=== PATIENT | female | born 1965 | race Hispanic/Latino ===

== ENCOUNTER 2021-08-04 17:04 | Emergency (ER) | payer OTHER, SELFPAY ==
[2021-08-04] MEDS ORDERED: MORPHINE 4 MG/ML SYR ONE (18:59)
[2021-08-04] MEDS ORDERED: ONDANSETRON 4 MG/2 ML VIAL ONE (18:59)
[2021-08-04] MEDS ORDERED: NA CHLORIDE 0.9% 1,000 ML ONE (18:59)
[2021-08-04 19:34] LABS: Absolute Lymphocytes (CBC) 0.8 K/uL (0.7-4.9); Hematocrit 42.8 % (36.0-45.0); Lymphocytes % 16.5 % (15.3-44.8); MPV 11.1 fL (7.6-11.3); RBC Red Blood Cell Count 4.57 M/uL (3.86-4.86)
[2021-08-04 19:48] LABS: Albumin 3.7 g/dL (3.4-5.0); Bilirubin Total 0.4 mg/dL (0.2-1.0); Potassium 3.7 mmol/L (3.5-5.1); Protein, Total 7.9 g/dL (6.4-8.2)
--- NOTE | 2021-08-04 19:57 | RAD REPORT ---
EXAM DESCRIPTION: CT - Stone Protocol - 08/04/2021 7:37 pm CLINICAL HISTORY: Abdominal pain./FLANK PAIN COMPARISON: 2016 TECHNIQUE: Computed axial tomography of the abdomen pelvis was obtained without oral or IV contrast. Lack of IV and oral contrast limits evaluation of solid organs, bowel, and vessels. Coronal reformat angeles images were obtained and reviewed. All CT scans are performed using dose optimization technique as appropriate and may include automated exposure control or mA/KV adjustment according to patient size. FINDINGS: 5 millimeter calculus proximal left ureter with mild left hydronephrosis. 3 millimeter calculus right kidney. No right hydronephrosis. The liver, spleen, pancreas and adrenals appear grossly normal There is no evidence of diverticulitis. The appendix appears normal IMPRESSION: 5 millimeter calculus proximal left ureter with mild left hydronephrosis
[2021-08-04 21:13] LABS: Urine Blood 3+ (Negative); Urine Glucose Negative (Negative); Urine Protein Negative (Negative)
[2021-08-04] MEDS ORDERED: TAMSULOSIN 0.4 MG SR CAP ONE (21:35)
--- NOTE | 2021-08-04 21:36 | EDPHYS ---
Physician Documentation [facility] Name: Yaneth Joyner Age: 56 yrs Sex: Female : 1965 Arrival Date: 08/04/2021 Time: 17:05 Bed 25 Private MD: ED Physician Evens Jefferson HPI: 08/04 17:56 This 56 yrs old Female presents to ER via Wheelchair with complaints of jmm Abdominal Pain, Vomiting. 17:56 The patient presents with abdominal pain. Onset: The symptoms/episode began/occurred jmm acutely, just prior to arrival, today. The symptoms do not radiate. Associated signs and symptoms: Pertinent positives: vomiting. The symptoms are described as achy. Modifying factors: The symptoms are alleviated by nothing, the symptoms are aggravated by nothing. Is a 56-year-old female with history of anemia the presents emerged part with complaints of left flank pain beginning just prior to arrival. Patient states the pain radiates into her left lower quadrant of her abdomen. Patient has had similar episodes in the past with previous kidney stones. Denies fever or chills.. Historical: - Allergies: 17:29 No Known Allergies; jb4 - Home Meds: 17:29 Iron CR Oral [Active]; jb4 - PMHx: 17:29 Anemia; jb4 - PSHx: 17:29 None; hernia repair; jb4 - Immunization history:: Adult Immunizations up to date. - Social history:: Smoking status: Patient denies any tobacco usage or history of. ROS: 17:56 Constitutional: Negative for fever, chills, and weight loss, Cardiovascular: Negative jm for chest pain, palpitations, and edema, Respiratory: Negative for shortness of breath, cough, wheezing, and pleuritic chest pain. 17:56 Abdomen/GI: Positive for abdominal pain, nausea and vomiting. 17:56 All other systems are negative. Exam: 17:56 Constitutional: This is a well developed, well nourished patient who is awake, alert, jmm and in no acute distress. Head/Face: atraumatic. Eyes: EOMI, no conjunctival erythema appreciated ENT: Moist Mucus Membranes Neck: Trachea midline, Supple Chest/axilla: Normal chest wall appearance and motion. Cardiovascular: Regular rate and rhythm. No edema appreciated Respiratory: Normal respirations, no respiratory distress appreciated 17:56 Skin: General appearance color normal MS/ Extremity: Moves all extremities, no obvious deformities appreciated, no edema noted to the lower extremities Neuro: Awake and alert 17:56 Abdomen/GI: Inspection: abdomen appears normal, Bowel sounds: normal, Palpation: soft, moderate abdominal tenderness, in the left lower quadrant. 17:56 Back: CVA tenderness, that is moderate, is noted bilaterally. Vital Signs: 17:28 BP 156 / 92; Pulse 55; Resp 20; Temp 97.8(O); Pulse Ox 100% ; Weight 113.85 kg (R); jb4 Height 5 ft. 3 in. (160.02 cm) (R); Pain 10/10; 19:21 BP 160 / 89; Pulse 56; Resp 19; Pulse Ox 100% on R/A; jb4 17:28 Body Mass Index 44.46 (113.85 kg, 160.02 cm) jb4 MDM: 17:57 Patient medically screened. [facility] 21:34 Data reviewed: vital signs, nurses notes. Counseling: I had a detailed discussion with [facility] the patient and/or guardian regarding: the historical points, exam findings, and any diagnostic results supporting the discharge/admit diagnosis, radiology results, the need for outpatient follow up, to return to the emergency department if symptoms worsen or persist or if there are any questions or concerns that arise at home. 08/04 17:56 Order name: CBC with Diff; Complete Time: 19:36 [facility] 08/04 17:56 Order name: CMP; Complete Time: 19:52 [facility] 08/04 17:56 Order name: Lipase; Complete Time: 19:52 [facility] 08/04 19:12 Order name: CT Stone Protocol; Complete Time: 20:00 [facility] 08/04 21:13 Order name: Urine Dipstick-Ancillary; Complete Time: 21:14 [facility] 08/04 21:15 Order name: Urine Dipstick-Ancillary [facility] 08/04 17:56 Order name: IV Saline Lock; Complete Time: 19:18 [facility] 08/04 17:56 Order name: Labs collected and sent; Complete Time: 19:18 [facility] 08/04 17:56 Order name: Urine Dipstick-Ancillary (obtain specimen); Complete Time: 21:14 [facility] Administered Medications: 19:18 Drug: NS 0.9% 1000 ml Route: IV; Rate: 1 bolus; Site: left forearm; jb4 20:37 Follow up: Response: No adverse reaction; IV Status: Completed infusion; IV Intake: jb4 1000ml 19:18 Drug: Zofran (Ondansetron) 4 mg Route: IVP; Site: left forearm; jb4 19:18 Drug: morphine 4 mg Route: IVP; Site: left forearm; jb4 20:37 Follow up: Response: No adverse reaction; Marked relief of symptoms jb4 21:37 Drug: Flomax (tamsulosin) 0.4 mg Route: PO; jb4 Disposition: 23:38 Co-signature as Attending Physician, Evens Jefferson MD. rn Disposition Summary: 08/04/21 21:35 Discharge Ordered Location: Home [facility] Condition: Stable [facility] Diagnosis - Calculus of kidney with calculus of ureter [facility] Followup: [facility] - With: Stan Kulkarni MD - When: 2 - 3 days - Reason: Recheck today's complaints, Continuance of care, Re-evaluation by your physician Discharge Instructions: - Discharge Summary Sheet [facility] - Kidney Stones [facility] Forms: - Medication Reconciliation Form [facility] - Thank You Letter [facility] - Antibiotic Education [facility] - Prescription Opioid Use [facility] Prescriptions: - Flomax 0.4 mg Oral capsule - take 1 capsule by ORAL route once daily 1/2 hour following the same meal each [facility] day; 10 capsule; Refills: 0, Product Selection Permitted - Ultracet 37.5-325 mg Oral Tablet - take 1 tablet by ORAL route every 6 hours - for up to 5 days; do not exceed 8 jmm tablets per day.; 12 tablet; Refills: 0, Product Selection Permitted - Ibuprofen 600 mg Oral Tablet - take 1 tablet by ORAL route 2 times per day As needed take with food; 12 jmm tablet; Refills: 0, Product Selection Permitted - ondansetron 4 mg Oral tablet,disintegrating - take 1 tablet by ORAL route every 4-6 hours; 20 tablet; Refills: 0, Product [facility] Selection Permitted Signatures: Dispatcher [employer] Zacarias Yuen PA PA [facility] Evens Jefferson MD MD rn Bryson, James, RN RN jb4
--- NOTE | 2021-08-04 21:36 | ER ---
Nurse's Notes [facility] Name: Yaneth Joyner Age: 56 yrs Sex: Female : 1965 Arrival Date: 08/04/2021 Time: 17:05 Bed 25 Private MD: Diagnosis: Calculus of kidney with calculus of ureter Presentation: 08/04 17:28 Chief complaint: Patient's son or daughter states: She started getting left lower jb4 abdominal pain that radiates to the right upper abdominal pain and has been vomiting and cannot keep anything down. Coronavirus screen: At this time, the client does not indicate any symptoms associated with coronavirus-19. Ebola Screen: No symptoms or risks identified at this time. Initial Sepsis Screen: Does the patient meet any 2 criteria? No. Patient's initial sepsis screen is negative. Does the patient have a suspected source of infection? Yes: Acute abdominal pain. Risk Assessment: Do you want to hurt yourself or someone else? Patient reports no desire to harm self or others. Onset of symptoms was August 04, 2021. Transition of care: patient was not received from another setting of care. 17:28 Method Of Arrival: Wheelchair jb4 17:28 Acuity: MINA 3 jb4 Historical: - Allergies: 17:29 No Known Allergies; jb4 - Home Meds: 17:29 Iron CR Oral [Active]; jb4 - PMHx: 17:29 Anemia; jb4 - PSHx: 17:29 None; hernia repair; jb4 - Immunization history:: Adult Immunizations up to date. - Social history:: Smoking status: Patient denies any tobacco usage or history of. Screenin:19 Abuse screen: Denies threats or abuse. Nutritional screening: No deficits noted. jb4 Tuberculosis screening: No symptoms or risk factors identified. Fall Risk None identified. Assessment: 19:19 General: Appears in no apparent distress. comfortable, Behavior is calm, cooperative, jb4 appropriate for age. Pain: Complains of pain in abdomen Pain does not radiate. Pain currently is 10 out of 10 on a pain scale. Neuro: Level of Consciousness is awake, alert, obeys commands, Oriented to person, place, time, situation. Cardiovascular: Patient's skin is warm and dry. Respiratory: Airway is patent Respiratory effort is even, unlabored, Respiratory pattern is regular, symmetrical. GI: Abdomen is flat, non-distended. : No signs and/or symptoms were reported regarding the genitourinary system. EENT: No signs and/or symptoms were reported regarding the EENT system. Derm: Skin is intact, Skin is dry, Skin is normal, Skin temperature is warm. Musculoskeletal: Circulation, motion, and sensation intact. Range of motion: intact in all extremities. 21:58 Reassessment: Patient appears in no apparent distress at this time. Patient and/or jb4 family updated on plan of care and expected duration. Pain level reassessed. Patient is alert, oriented x 3, equal unlabored respirations, skin warm/dry/pink. Vital Signs: 17:28 BP 156 / 92; Pulse 55; Resp 20; Temp 97.8(O); Pulse Ox 100% ; Weight 113.85 kg (R); jb4 Height 5 ft. 3 in. (160.02 cm) (R); Pain 10/10; 19:21 BP 160 / 89; Pulse 56; Resp 19; Pulse Ox 100% on R/A; jb4 17:28 Body Mass Index 44.46 (113.85 kg, 160.02 cm) 4 ED Course: 17:05 Patient arrived in ED. as 17:27 Zacarias Rogers PA is PHCP. [facility] 17:27 Markus Hernandez MD is Attending Physician. [facility] 17:29 Triage completed. jb4 17:29 Arm band placed on right wrist. jb4 19:00 Initial lab(s) drawn, by nh, sent to lab. Inserted saline lock: 22 gauge in left jb4 forearm, using aseptic technique. Blood collected. 19:19 Timoteo Woody, RN is Primary Nurse. jb4 19:19 Patient has correct armband on for positive identification. Placed in gown. Bed in low jb4 position. Call light in reach. Side rails up X 1. Pulse ox on. NIBP on. 19:39 CT Stone Protocol In Process Unspecified. EDMS 21:15 Attending Physician role handed off by Markus Hernandez MD [facility] 21:15 Evens Jefferson MD is Attending Physician. [facility] 21:35 Stan Kulkarni MD is Referral Physician. [facility] 21:58 No provider procedures requiring assistance completed. IV discontinued, intact, jb4 bleeding controlled, No redness/swelling at site. Pressure dressing applied. Administered Medications: 19:18 Drug: NS 0.9% 1000 ml Route: IV; Rate: 1 bolus; Site: left forearm; jb4 20:37 Follow up: Response: No adverse reaction; IV Status: Completed infusion; IV Intake: jb4 1000ml 19:18 Drug: Zofran (Ondansetron) 4 mg Route: IVP; Site: left forearm; jb4 19:18 Drug: morphine 4 mg Route: IVP; Site: left forearm; jb4 20:37 Follow up: Response: No adverse reaction; Marked relief of symptoms jb4 21:37 Drug: Flomax (tamsulosin) 0.4 mg Route: PO; jb4 Intake: 20:37 IV: 1000ml; Total: 1000ml. jb4 Outcome: 21:35 Discharge ordered by . alyssa 21:58 Discharged to home ambulatory. jb4 21:58 Condition: stable 21:58 Discharge instructions given to patient, Instructed on discharge instructions, follow up and referral plans. medication usage, Demonstrated understanding of instructions, follow-up care, medications, Prescriptions given X 4. 21:59 Patient left the ED. jb4 Signatures: Dispatcher [employer] EDMS Zacarias Rogers PA PA jmm Martinez, Amelia as Bryson, James, RN RN jb4
[2021-08-05 03:30] VITALS: TEMP 97.8; O2SAT 100
[2021-08-05 03:31] VITALS: BP 160/89
== END 2021-08-04 21:59 | disposition home or self-care (01) ==
LOC: ER 17:04
DX: N20.2 Calculus of kidney with calculus of ureter (principal); R11.2 Nausea with vomiting, unspecified
CPT/HCPCS: 36415; 74176; 76377; 80053; 81003; 83690; 85025; 96361; 96374; 96375; 99284; J2405; J7030

== ENCOUNTER 2021-10-22 06:05 | Day surgery (SDC) | payer SELFPAY ==
[2021-10-18 13:48] LABS: SARS-CoV-2 Antigen Rapid Res Negative (Negative)
[2021-10-18 13:55] LABS: Absolute Lymphocytes (CBC) 1.4 K/uL (0.7-4.9); Lymphocytes % 33.1 % (15.3-44.8); MCV 93.1 fL (80-100); MPV 10.2 fL (7.6-11.3); Protime INR 1.1; RBC Red Blood Cell Count 4.19 M/uL (3.86-4.86)
[2021-10-22] MEDS ORDERED: Ringers Lactate 1,000 ML IV ONE (06:59)
[2021-10-22] MEDS ORDERED: Gentamicin Inj 240 MG in NA CHLORIDE 0.9% 100 ML IV SCH (07:00)
[2021-10-22] MEDS ORDERED: AMPICILLIN SODIUM 2 GM in NA CHLORIDE 0.9% 100 ML IVPB SCH (07:00)
[2021-10-22] MEDS ORDERED: MIDAZOLAM HCL 2 MG/2 ML INJ ONE (07:35)
[2021-10-22] MEDS ORDERED: propofoL 200 MG/20 ML VIAL IV ONE (07:41)
[2021-10-22] MEDS ORDERED: FENTANYL CITR 100 MCG/2 ML ONE (07:42)
[2021-10-22] MEDS ORDERED: LIDOCAINE 1% MPF 5 ML VIAL ONE (07:42)
[2021-10-22] MEDS ORDERED: dexAMETHasone 10 MG/ML VIAL ONE (07:58)
[2021-10-22] MEDS ORDERED: ONDANSETRON 4 MG/2 ML VIAL ONE (07:58)
[2021-10-22] MEDS ORDERED: Mastisol Adhesive Liq ONE (08:14)
[2021-10-22] MEDS ORDERED: PHENAZOPYRIDINE 100MG TAB PO ONE ×2 (09:06→09:53)
[2021-10-22] MEDS ORDERED: CODEINE 30MG/APAP 300MG TAB PO PRN (09:06)
[2021-10-22 09:33] VITALS: BP 145/80; TEMP 96.3; O2SAT 99
--- NOTE | 2021-10-22 09:44 | OP ---
Surgeon: DONNELL RAMIREZ Preoperative Diagnosis: Left ureterolithiasis. Postoperative Diagnoses: 1.Left ureterolithiasis. 2.Left hydronephrosis. 3.Cystocele. 4.Meatal stenosis. Principle Procedures: 1.Meatal dilation using sounds. 2.Cystoscopy. 3.Left ureteroscopy with stone basketing. 4.Left ureteral stent placement. Indication For Procedure: Ms. Garland Joyner presented to the Urology Clinic with a prolonged obstru cting left ureteral calculus. She had undergone a CT scan at the beginning of July, which revealed the presence of a 5 mm proximal left ureteral calculus. She had not passed the stone, still having p ain as recently as last Thursday. She was counseled on the importance of surgical intervention to av oid acute kidney injury and presents today for definitive management. She did have concerns because she had no more pain and had some burning with urination over the weekend and thought maybe she passe d the stone. That dysuria was on a solitary occasion and she did not see a stone. I counseled that in the absence of the stone, sometimes pain can be transient, but obstruction still present. It was important to investigate at this point operatively as recommended. Procedure In Detail: The patient was consented in the preoperative holding area before being transfe rred to the operative suite where general anesthesia was induced. She was given ampicillin 2 g and g entamicin 240 mg IV antimicrobial prophylaxis and pneumo boots were provided for DVT prophylaxis. Leela means was placed in the lithotomy position, padded and secured to the table appropriately. Her genitalia were prepped using Hibiclens and she was draped in standard fashion. The case was begun using attem pted and used a 22-Ecuadorean rigid cystoscope, but there was significant meatal stenosis with downward a ngulation of the urethra that prohibited passage of the cystoscope. Of note, there was also a grade 2-3 cystocele present, likely contributing to the urethral downward angulation. I attempted to utili ze a smaller caliber cystoscope, 21-Ecuadorean with the obturator, but this also would not pass. So, I u tilized urethral sounds to dilate the meatus and fossa navicularis to 26-Ecuadorean and then I was able t o pass the 22-Ecuadorean rigid cystoscope via the urethra and into the bladder with ease. The bladder wa s surveyed in its entirety, and there were no papillary mucosal lesions, foreign bodies, or stones no angeles throughout. There was some erythema around the left ureteral orifice, but otherwise no significa nt change. There was some efflux of urine noted to come from the ureteral orifice, though it was not a jet of urine as typically seen. As a result, I cannulated the left ureteral orifice using the tip of a 5-Ecuadorean ureteral access catheter and a Sensor wire. I was then able to perform a retrograde p yelogram. Left retrograde pyelography: Using a 70:30 mixture of Omnipaque and saline, contrast was injected via the lumen of the 5-Ecuadorean ur eteral access catheter and did propagate up a mildly dilated ureter into a moderately dilated renal p che with minimal to no caliectasis noted. Because of the equivocal nature of the retrograde pyelog suleiman, I did pass a Sensor wire into the renal pelvis where it coiled fluoroscopically in the upper natty e. I then removed the 5-Ecuadorean ureteral access catheter and assessed the efflux of contrast. There was delayed efflux of contrast indicative of ongoing obstruction; so I employed a dual-lumen catheter , which was placed into the ureteral orifice. Attempting to pass the dual-lumen catheter a few cm in to the distal ureter, I did encounter some granular obstruction indicative of likely stone presents i n that location. As a result, I passed a Naviscan guidewire via the second lumen of the dual-lumen ca theter before removing the dual-lumen catheter and performing semi-rigid ureteroscopy. Over the Bent son guidewire, the semi-rigid ureteroscope was passed into the distal ureter and the stone was visual ized. It was free-floating and did blow using the pressurized saline irrigation into the proximal ur eter where I followed it and grasped it using a basket, bringing it back down to the distal ureter. Because it was brought to the ureteral orifice where there was minimal obstruction at that point, I w as able to gently pull it and bring the stone out of the ureteral orifice and sending it for chemical analysis. I then back-loaded the cystoscope over the indwelling safety wire and passed a 6-Ecuadorean b y 24 cm double-J stent with ease into the upper pole of the kidney with a coil observed fluoroscopica lly. An additional coil cystoscopically was formed in the bladder. The stent was left on its tether , which was secured to her introitus using Mastisol and Steri-Strips. Her bladder was decompressed o f fluid and urine, and she was taken out of the lithotomy position. She was then awakened from gener al anesthesia, transferred to a stretcher, and then transferred to the recovery room in [facility] n. Complications: None. Discharge Disposition: She should follow up in the Urology Clinic within the next 5-7 days for tethe red ureteral stent removal. I will discharge her with several days of oral antimicrobial therapy to minimize the risk of infection. Subsequently if she has had stones in the past, but she has passed o r dealt with, metabolic analysis with 24-hour urine studies will be required about a month from now w [facility] followup to discuss that. HIRAL/BRANDO Voice ID: [id number] Report ID: [id number]
--- NOTE | 2021-10-22 12:49 | EKG ---
Test Date: 2021-10-18 Test Time: 13:27:55 Printer'S Assistant: LALITO MEASUREMENT RESULTS: Intervals: Rate: 64 NE: 174 QRSD: 86 QT: 422 QTc: 435 [place]: P: 61 NE: 174 QRS: 51 T: 69 INTERPRETIVE STATEMENTS: Normal sinus rhythm Normal ECG No previous ECG available for comparison Electronically Signed On 10-22-21 12:47:48 CDT by Alex Clark
--- NOTE | 2021-10-22 14:56 | RAD REPORT ---
EXAM DESCRIPTION: RAD - Urethrocystogrphy Retrograde - 10/22/2021 2:45 pm CLINICAL HISTORY: LEFT STENT COMPARISON: <Comparisons> FINDINGS: Total fluoro time: 0.33 minute.
== END 2021-10-22 10:21 | disposition home or self-care (01) ==
LOC: OR 06:05
PROVIDERS: ATTEND Urology
PROC: 0T9780Z Drainage of Left Ureter with Drainage Device, Via Natural or Artificial Opening Endoscopic (ICD-10-PCS; 2021-10-22)
PROC: 0T778ZZ Dilation of Left Ureter, Via Natural or Artificial Opening Endoscopic (ICD-10-PCS; 2021-10-22)
PROC: 0TC78ZZ Extirpation of Matter from Left Ureter, Via Natural or Artificial Opening Endoscopic (ICD-10-PCS; principal; 2021-10-22 07:30)
DX: N20.2 Calculus of kidney with calculus of ureter (principal); R10.9 Unspecified abdominal pain; R30.0 Dysuria; Z20.822 Contact with and (suspected) exposure to COVID-19
CPT/HCPCS: 36415; 51610; 74450; 80048; 85025; 85610; 87086; 87088; 87811; 88300; 93005; J0290; J1100; J1580; J2250; J2405; J2704; J3010; J7120

== ENCOUNTER 2021-10-27 02:12 | Emergency (ER) | payer SELFPAY ==
[2021-10-27] MEDS ORDERED: CIPROFLOXACIN HCL 500 MG TAB ONE (03:30)
--- NOTE | 2021-10-27 03:31 | ER ---
Nurse's Notes [facility] Name: Yaneth Joyner Age: 56 yrs Sex: Female : 1965 Arrival Date: 10/27/2021 Time: 02:16 Bed 6 Private MD: Diagnosis: UTI/ Urinary tract infection, site not specified;Displacement of indwelling ureteral stent, initial encounter Presentation: 10/27 02:28 Chief complaint: Patient states: had urinary stent placed on October 22 has appt with urologist on Thursday for stent removal reports stent is coming out denies increase or change in pain. Coronavirus screen: Vaccine status: Patient reports being unvaccinated. Ebola Screen: Patient negative for fever greater than or equal to 101.5 degrees Fahrenheit, and additional compatible Ebola Virus Disease symptoms. Initial Sepsis Screen: Does the patient meet any 2 criteria? No. Patient's initial sepsis screen is negative. Does the patient have a suspected source of infection? No. Patient's initial sepsis screen is negative. Risk Assessment: Do you want to hurt yourself or someone else? Patient reports no desire to harm self or others. Onset of symptoms was October 27, 2021. 02:28 Method Of Arrival: Ambulatory 02:28 Acuity: MINA 3 Triage Assessment: 02:40 General: Appears distressed, uncomfortable, well groomed, Behavior is anxious. Pain: Complains of pain in pelvis. EENT: No deficits noted. No signs and/or symptoms were reported regarding the EENT system. Neuro: No deficits noted. Cardiovascular: No deficits noted. Respiratory: No deficits noted. Airway is patent Trachea midline Respiratory effort is even, unlabored. GI: No deficits noted. No signs and/or symptoms were reported involving the gastrointestinal system. : Denies inability to void, urinary frequency. Derm: No deficits noted. No signs and/or symptoms reported regarding the dermatologic system. Musculoskeletal: No deficits noted. No signs and/or symptoms reported regarding the musculoskeletal system. WELL TESTER: 03:40 LMP N/A - Post-menopause Historical: - Allergies: 02:38 No Known Allergies; kl - Home Meds: 02:38 Keflex Oral [Active]; kl - PMHx: 02:38 Anemia; kl - PSHx: 02:38 hernia repair; renal stent; kl - Immunization history:: Adult Immunizations not up to date. - Social history:: Smoking status: Patient denies any tobacco usage or history of. - Family history:: not pertinent. Screenin:43 Abuse screen: Denies threats or abuse. Nutritional screening: No deficits noted. Tuberculosis screening: No symptoms or risk factors identified. Fall Risk None identified. Assessment: 03:44 Reassessment: Patient appears in no apparent distress at this time. No changes from previously documented assessment. Patient and/or family updated on plan of care and expected duration. Pain level reassessed. Vital Signs: 02:28 BP 125 / 71; Pulse 68; Resp 18; Temp 98.3; Pulse Ox 98% ; Pain 7/10; kl 03:40 BP 126 / 76; Pulse 68; Resp 16; Pulse Ox 99% on R/A; Pain 2/10; kl ED Course: 02:16 Patient arrived in ED. bp1 02:33 Markus Hernandez MD is Attending Physician. tonio 02:38 Triage completed. kl 03:26 Stan Kulkarni MD is Referral Physician. tonio 03:34 Urine Culture Sent. kl 03:34 Abdomen 1 View (KUB) XRAY Sent. kl 03:42 Arm band placed on right wrist. kl 03:50 No provider procedures requiring assistance completed. Patient did not have IV access kl during this emergency room visit. 03:51 Patient has correct armband on for positive identification. kl 04:04 Abdomen 1 View (KUB) XRAY In Process Unspecified. EDMS Administered Medications: 03:34 Drug: Cipro (ciprofloxacin) 500 mg Route: PO; 03:44 Follow up: Response: No adverse reaction Medication: 03:43 VIS not applicable for this client. Outcome: 03:31 Discharge ordered by . tonio 03:50 Discharged to home ambulatory. kl 03:50 Condition: improved 03:50 Discharge instructions given to patient, family, Instructed on discharge instructions, follow up and referral plans. medication usage, Demonstrated understanding of instructions, follow-up care, medications, Prescriptions given X 1. 03:51 Patient left the ED. Signatures: Dispatcher [employer] EDMS Rashida Poe RN RN kl Anderson, Corey, MD MD cha Paniauga, Brittany bp1
--- NOTE | 2021-10-27 03:32 | EDPHYS ---
Physician Documentation [facility] Name: Yaneth Joyner Age: 56 yrs Sex: Female : 1965 Arrival Date: 10/27/2021 Time: 02:16 Bed 6 Private MD: ED Physician Markus Hernandez HPI: 10/27 03:21 This 56 yrs old Female presents to ER via Ambulatory with complaints of tonio Problem With Urinary Catheter. 03:21 The patient presents with urinary symptoms, frequency, hematuria. Onset: The tonio symptoms/episode began/occurred 1 day(s) ago. Modifying factors: The symptoms are alleviated by nothing, the symptoms are aggravated by nothing. Associated signs and symptoms: The patient has no apparent associated signs or symptoms. Severity of symptoms: At their worst the symptoms were mild, in the emergency department the symptoms are unchanged. 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 - Social history:: Smoking status: Patient denies any tobacco usage or history of. - Family history:: not pertinent. ROS: 03:21 Constitutional: Negative for fever, chills, and weight loss, Eyes: Negative for injury, tonio pain, redness, and discharge, ENT: Negative for injury, pain, and discharge, Neck: Negative for injury, pain, and swelling, Cardiovascular: Negative for chest pain, palpitations, and edema, Respiratory: Negative for shortness of breath, cough, wheezing, and pleuritic chest pain, Abdomen/GI: Negative for abdominal pain, nausea, vomiting, diarrhea, and constipation, Back: Negative for injury and pain, MS/Extremity: Negative for injury and deformity, Skin: Negative for injury, rash, and discoloration, Neuro: Negative for headache, weakness, numbness, tingling, and seizure, Psych: Negative for depression, anxiety, suicide ideation, homicidal ideation, and hallucinations, Allergy/Immunology: Negative for hives, rash, and allergies, Endocrine: Negative for neck swelling, polydipsia, polyuria, polyphagia, and marked weight changes, Hematologic/Lymphatic: Negative for swollen nodes, abnormal bleeding, and unusual bruising. 03:21 : Positive for urinary symptoms, small amounts, hematuria. Exam: 03:21 Constitutional: This is a well developed, well nourished patient who is awake, alert, tonio and in no acute distress. Head/Face: Normocephalic, atraumatic. Eyes: Pupils equal round and reactive to light, extra-ocular motions intact. Lids and lashes normal. Conjunctiva and sclera are non-icteric and not injected. Cornea within normal limits. Periorbital areas with no swelling, redness, or edema. ENT: Nares patent. No nasal discharge, no septal abnormalities noted. Tympanic membranes are normal and external auditory canals are clear. Oropharynx with no redness, swelling, or masses, exudates, or evidence of obstruction, uvula midline. Mucous membranes moist. Neck: Trachea midline, no thyromegaly or masses palpated, and no cervical lymphadenopathy. Supple, full range of motion without nuchal rigidity, or vertebral point tenderness. No Meningismus. Chest/axilla: Normal chest wall appearance and motion. Nontender with no deformity. No lesions are appreciated. Cardiovascular: Regular rate and rhythm with a normal S1 and S2. No gallops, murmurs, or rubs. Normal PMI, no JVD. No pulse deficits. Respiratory: Lungs have equal breath sounds bilaterally, clear to auscultation and percussion. No rales, rhonchi or wheezes noted. No increased work of breathing, no retractions or nasal flaring. Abdomen/GI: Soft, non-tender, with normal bowel sounds. No distension or tympany. No guarding or rebound. No evidence of tenderness throughout. Back: No spinal tenderness. No costovertebral tenderness. Full range of motion. Skin: Warm, dry with normal turgor. Normal color with no rashes, no lesions, and no evidence of cellulitis. MS/ Extremity: Pulses equal, no cyanosis. Neurovascular intact. Full, normal range of motion. Neuro: Awake and alert, GCS 15, oriented to person, place, time, and situation. Cranial nerves II-XII grossly intact. Motor strength 5/5 in all extremities. Sensory grossly intact. Cerebellar exam normal. Normal gait. Psych: Awake, alert, with orientation to person, place and time. Behavior, mood, and affect are within normal limits. Vital Signs: 02:28 BP 125 / 71; Pulse 68; Resp 18; Temp 98.3; Pulse Ox 98% ; Pain 7/10; kl 03:40 BP 126 / 76; Pulse 68; Resp 16; Pulse Ox 99% on R/A; Pain 2/10; kl MDM: 02:33 Patient medically screened. [facility] 10/27 03:19 Order name: Urine Culture [facility] 10/27 03:33 Order name: Urine Dipstick-Ancillary [facility] [place] 10/27 03:19 Order name: Abdomen 1 View (KUB) XRAY [facility] 10/27 03:19 Order name: Urine Dipstick-Ancillary (obtain specimen); Complete Time: 03:34 [facility] Administered Medications: 03:34 Drug: Cipro (ciprofloxacin) 500 mg Route: PO; kl 03:44 Follow up: Response: No adverse reaction kl Disposition Summary: 10/27/21 03:31 Discharge Ordered Location: Home tonio Problem: new tonio Symptoms: have improved tonio Condition: Stable tonio Diagnosis - UTI/ Urinary tract infection, site not specified tonio - Displacement of indwelling ureteral stent, initial encounter tonio Followup: tonio - With: Private Physician - When: 2 - 3 days - Reason: Recheck today's complaints, Continuance of care, Re-evaluation by your physician Followup: tonio - With: Stan Kulkarni MD - When: 2 - 3 days - Reason: Recheck today's complaints, Continuance of care, Re-evaluation by your physician Discharge Instructions: - Discharge Summary Sheet tonio - Dysuria tonio - Urinary Tract Infection, Adult tonio - Urinary Tract Infection, Adult, [id number] Forms: - Medication Reconciliation Form tonio - Thank You Letter tonio - Antibiotic Education tonio - Prescription Opioid Use [facility] Prescriptions: - Cipro 250 mg Oral Tablet - take 2 tablets by ORAL route every 12 hours; 20 tablet; Refills: 0, Product tonio Selection Permitted Signatures: Dispatcher [employer] Rashida Herrera RN RN kl Anderson, Corey, MD MD cha
[2021-10-27 03:33] LABS: Urine Blood 3+ (Negative); Urine Glucose Negative (Negative); Urine Protein 2+ (Negative); Urine Specific Gravity 1.025 (1.005-1.030); Urine pH 5.5 (5.0-7.0)
[2021-10-27 04:04] VITALS: TEMP 98.3
[2021-10-27 04:17] VITALS: BP 126/76; O2SAT 99
--- NOTE | 2021-10-28 12:57 | RAD REPORT ---
EXAM DESCRIPTION: Abdominal Radiography COMPARISON: None. CLINICAL HISTORY: [facility] MAIN ABD PAIN FINDINGS: A single AP view of the abdomen demonstrates a nonobstructive bowel gas pattern. There is a moderate stool burden. No gross intraperitoneal free air. Osseous structures are intact. IMPRESSION: Nonobstructive bowel gas pattern. Electronically signed by: Elmer Woods MD 10/27/2021 6:00 AM CDT Due to temporary technical issues with the PACS/Fluency reporting system, reports are being signed by the in house radiologists without review as a courtesy to insure prompt reporting. The interpreting radiologist is fully responsible for the content of the report.
== END 2021-10-27 03:51 | disposition home or self-care (01) ==
LOC: ER 02:12
DX: N39.0 Urinary tract infection, site not specified (principal); T83.122A Displacement of indwelling ureteral stent, initial encounter
CPT/HCPCS: 74018; 81003; 87086; 87088; 99284